=== PATIENT | male | born 1995 | race Two or more races ===

== ENCOUNTER 2017-03-14 15:25 | Emergency (ER) | payer OTHER ==
[~2017-03-14] VITALS: Ht 180.3 cm; Wt 62.0 kg
[2017-03-14 16:05] VITALS: BP 118/68
[2017-03-14] MEDS ORDERED: HYDROCODONE/ACETAMINOPHEN 5/325MG TABLET PO ONE (16:15)
[2017-03-14] MEDS ORDERED: BACITRACIN ZINC OINT UDPKT TOP ONE (16:15)
[2017-03-14] MEDS ORDERED: SILVER SULFADIAZINE 1% CREAM 25GM TOP ONE (16:15)
[2017-03-14] MEDS ORDERED: TRAMADOL 50MG TABLET PO ONE (17:30)
== END 2017-03-14 19:11 | disposition home or self-care (01) ==
LOC: ER 15:25
DX: S90.32XA Contusion of left foot, initial encounter (principal); S90.02XA Contusion of left ankle, initial encounter; S80.212A Abrasion, left knee, initial encounter; T25.122A Burn of first degree of left foot, initial encounter; F17.200 Nicotine dependence, unspecified, uncomplicated; F12.10 Cannabis abuse, uncomplicated; V23.4XXA Motorcycle driver injured in collision with car, pick-up truck or van in traffic accident, initial encounter; Y93.89 Activity, other specified; Y92.89 Other specified places as the place of occurrence of the external cause; Y99.8 Other external cause status
CPT/HCPCS: 16000; 73610; 73630; 99284; X7700; Z7610